=== PATIENT | female | born 1980 | race Caucasian/White ===

== ENCOUNTER 2017-01-24 20:52 | Emergency (ER) | payer OTHER ==
[2017-01-24 20:52] VITALS: BMI 21.5
[2017-01-24 21:06] VITALS: O2SAT 100
[2017-01-24 23:30] VITALS: BP 102/65; PULSE 66; RESP 18; TEMP 97.8
--- NOTE | 2017-01-24 23:57 | C.PDOC ---
History Of Present Illness A 36 y/o F c/o rash to the chest for a week. Rash is itchy in nature. Pt took no medication for the symptom. Denies fever, chills, new foods, nausea, vomiting , diarrhea, or any other complaints. Time Seen by Provider: 01/24/17 22:05 Chief Complaint (Nursing): Abnormal Skin Integrity History Per: Patient History/Exam Limitations: no limitations Onset/Duration Of Symptoms: Days Current Symptoms Are (Timing): Still Present Severity: Mild Recent travel outside of the [place]: No Additional History Per: Patient Past Medical History Reviewed: Historical Data, Nursing Documentation, Vital Signs Vital Signs: Last Vital Signs Temp 97.8 F 01/24/17 23:30 Pulse 66 01/24/17 23:30 Resp 18 01/24/17 23:30 BP 102/65 01/24/17 23:30 Pulse Ox 100 01/25/17 00:33 - Medical History PMH: Migraine Family History: States: Unknown Family Hx - Social History Hx Tobacco Use: No Hx Alcohol Use: No Hx Substance Use: No - Immunization History Hx Tetanus Toxoid Vaccination: Yes Hx Influenza Vaccination: Yes Hx Pneumococcal Vaccination: Yes Review Of Systems Except As Marked, All Systems Reviewed And Found Negative. Constitutional: Negative for: Fever, Chills Gastrointestinal: Negative for: Nausea, Vomiting, Diarrhea Skin: Positive for: Rash (Chest, itchy) Physical Exam - Physical Exam Appears: Non-toxic, No Acute Distress Skin: Warm, Dry, Rash (Mid chest hyperpigmentation with erythematous macular rash at the center (around the bilateral breast area)) Head: Atraumatic, Normacephalic Eye(s): bilateral: Normal Inspection Oral Mucosa: Moist Throat: Normal, No Exudate Cardiovascular: Rhythm Regular Respiratory: Normal Breath Sounds, No Accessory Muscle Use, No Rales, No Rhonchi , No Wheezing Neurological/Psych: Oriented x3, Normal Speech, Normal Cognition ED Course And Treatment O2 Sat by Pulse Oximetry: 100 (RA) Pulse Ox Interpretation: Normal Progress Note: Impression: 36 y/o F c/o itchy rash to the chest for a week. Plans: Reassess. Patient is resting comfortably, and is in no acute distress. Patient was instructed to follow up with physician/clinic in 1-2 days for further evaluation. Disposition Counseled Patient/Family Regarding: Diagnosis, Need For Followup, Rx Given - Disposition Referrals: Radha Pena MD [Staff Provider] - Disposition: HOME/ ROUTINE Disposition Time: 23:55 Condition: STABLE Additional Instructions: Please follow up with PMD '' Take meds as directed Use cream prescribed Return if worse Prescriptions: Clotrimazole 1% Cream [Lotrimin 1%] 1 appl TP BID #1 tube Instructions: Tinea Corporis (ED) Print Language: [place] - Clinical Impression Clinical Impression: Fungal rash of torso - Scribe Statement The provider has reviewed the documentation as recorded by the Scribpatsy [email or web address] All medical record entries made by the Desireeibpatsy were at my direction and personally dictated by me. I have reviewed the chart and agree that the record accurately reflects my personal performance of the history, physical exam, medical decision making, and the department course for this patient. I have also personally directed, reviewed, and agree with the discharge instructions and disposition.
== END 2017-01-25 00:01 | disposition home or self-care (01) ==
LOC: C.ER 20:52
DX: B36.9 Superficial mycosis, unspecified (principal)